=== PATIENT | male | born 1945 | race Caucasian/White ===

== ENCOUNTER 2016-10-05 10:33 | Inpatient (IN) | payer OTHER ==
[2016-08-30 13:21] VITALS: BMI 29.0
--- NOTE | 2016-08-30 13:48 | PAT Medication Instructions ---
Service Date Aug 30, 2016. Current Home Medication List Aspirin (Aspirin Ec), 81 MG PO QAM Atorvastatin (Lipitor), 40 MG PO QPM Multivitamin (Multivitamin), 1 TAB PO QAM Naproxen (Aleve), 440 MG PO QAM Medication Instructions For Your Scheduled Surgery - Check with surgeon for instructions: Naproxen (Aleve), 440 MG PO QAM - Hold the following medications the morning of surgery: Multivitamin (Multivitamin), 1 TAB PO QAM - Take the following medications the morning of surgery with a sip of water: Aspirin (Aspirin Ec), 81 MG PO QAM - Take the following medications as scheduled the night before surgery: Atorvastatin (Lipitor), 40 MG PO QPM If you have any questions please call us at [phone] (Susie Walker PA-C) or [phone] or [phone]
[2016-08-30 14:16] LABS: BASO % 0.3 %; BASO ABS # 0.02 K/uL (0-0.2); COMPLETE YES; EOS % 1.4 %; IG% 0.2 %; LYMPH % 42.1 %; MEAN CELL VOLUME 89.2 fL (80-100); MEAN CORPUSCULAR HEMOGLOBIN 30.4 pg (25-34); MEAN CORPUSCULAR HGB CONC 34.1 g/dl (32-36); MEAN PLATELET VOLUME 11.1 fL (7.4-10.4); MONO % 8.9 %; NEUT % 47.1 %; PLATELET COUNT 158 K/uL (130-400); RED BLOOD COUNT 4.93 M/uL (4.7-6.1); WHITE BLOOD COUNT 6.42 K/uL (4.8-10.8)
[2016-08-30 14:25] LABS: PARTIAL THROMBOPLASTIN RATIO 0.9; PROTHROMBIN TIME (PATIENT) 10.6 SECONDS (9.0-12.0)
[2016-08-30 14:49] LABS: BUN/CREATININE RATIO 14.9 (10-20); CALCIUM 8.5 mg/dl (8.5-10.1); CREATININE 1.1 mg/dl (0.60-1.40); POTASSIUM 3.5 mmol/L (3.5-5.1)
--- NOTE | 2016-08-30 17:15 | DIAGNOSTIC IMAGING REPORT ---
CHEST 2 VIEWS ROUTINE HISTORY: Preop. COMPARISON: None. FINDINGS: The lungs are clear. Cardiac silhouette is normal in size. No pleural effusions. No pneumothorax. IMPRESSION: No acute process. Electronically signed by: Damon Lezama M.D. 08/30/2016 5:14 PM Dictated Date/Time: 08/30/2016 5:14 PM
--- NOTE | 2016-10-01 19:21 | HISTORY & PHYSICAL EXAMINATION ---
DATE OF ADMISSION: 10/05/2016 CHIEF COMPLAINT: Left knee pain. HISTORY OF PRESENT ILLNESS: This is a 71-year-old gentleman who presents for surgical treatment of his left knee. He has got a long history of left knee discomfort and pain. It has gotten significantly worse over the past several years. He has been seeing Dr. Correa and treated with steroid shots and viscosupplementation which provided minimal relief. Pain has become more disabling. He cannot walk any long distances. He has lost ability to do a lot of things he likes to do as a result. PAST MEDICAL HISTORY: 1. Elevated cholesterol. 2. Kidney stones. PAST SURGICAL HISTORY: Previous surgeries include knee surgery in 1974. ALLERGIES: None. CURRENT MEDICINES: 1. Lipitor once a day. 2. Aspirin 81 mg a day. 3. Aleve p.r.n. SOCIAL HISTORY: This is a 71-year-old male. He lives in [place]. He is . Has a domestic partner. 1-2 drinks per day. Two children. FAMILY HISTORY: Noncontributory. REVIEW OF SYSTEMS: Negative for diabetes, neurologic problems, vascular problems, bleeding disorders. Denies any chest pain or shortness of breath. No history of DVT or PE. PHYSICAL EXAMINATION: GENERAL: Physical examination reveals a healthy, pleasant middle-aged male. He looks to be in good health. He looks younger than his stated age. HEENT: Benign. NECK: Supple. No lymphadenopathy. LUNGS: Clear to auscultation. HEART: Regular rate and rhythm. ABDOMEN: Soft, nontender, nondistended. EXTREMITIES: Grossly neurovascularly intact except as follows: Examination of left knee reveals patient ambulates independently. He has got varus alignment to his knee. Slight flexion contracture of 5-10 degrees. He can flex to 110. No instability. No pain with hip motion. X-RAYS: X-rays of the left knee were reviewed. It shows advanced left knee DJD. He has got complete loss of his medial joint space. He has got subchondral sclerosis. He has got osteophytes off the medial femoral condyle and medial tibial plateau. ASSESSMENT: A 71-year-old male with advanced left knee degenerative joint disease. He has failed conservative care and would like to have his left knee replaced. PLAN: We will take him to the operating room and do a left total knee replacement. The risks and benefits of this procedure were explained to the patient including but not limited to DVT, PE, , infection, neurological injury, vascular injury, bleeding problems, pain, limited range of motion, stiffness, failure to relieve symptoms, incomplete relief of symptoms, need for further surgery in the future, fracture, leg length inequality, nerve palsy, persistent pain, etc. The patient understands and desires to proceed. Informed consent was obtained. The patient had preoperative workup. EKG showed sinus rhythm with a first degree AV block. Chest x-ray normal. Labs were all normal. As far as discharge plans, he is planning to be discharged to home using [facility] home health program.
[~2016-10-05] VITALS: Ht 180.3 cm; Wt 88.5 kg
[2016-10-05] VITALS (7 sets, daily range): BP systolic 120–153; BP diastolic 68–98; PULSE 63–80; TEMP 36.5–37.3; O2SAT 92–98; Ht 180.3 cm; Wt 88.5 kg
[~2016-10-05 10:33] MED LIST: ACETAMINOPHEN 500 MG TAB PO SCH; ASPI81TA28 PO; ATOR-24 PO; ATROPINE SULFATE 0.1 MG/ML 5ML SYR IV PRN; BUPIVACAINE 0.25% 30 ML VIAL ONE; BUPIVACAINE 0.5 % 5 MG/1 ML PF 10ML VIAL ONE; BUPIVACAINE LIPOSOME 266 MG, BUPIVACAINE/EPINEPHRINE INJ 50 ML, SODIUM CHLORIDE 0.9% PF... INFIL SCH; CEFAZOLIN 2000 MG/60 ML D5W 60 ML IV SCH; EpHEDrine SULFATE INJ 50 MG/ML AMP IV PRN; FAMOTIDINE 20 MG TAB PO SCH; FENTANYL CITRATE INJ 50 MCG/1 ML 2 ML VIAL IV PRN; GABAPENTIN 300 MG CAP PO SCH; LACTATED RINGER'S 1000ML 1,000 ML IV SCH; LACTATED RINGER'S 1000ML IV SCH; METOCLOPRAMIDE HCL 10 MG TAB PO SCH; MULT-506 PO; NAPR1TAB9 PO; ONDANSETRON INJ 2 MG/ML 2 ML VIAL IV PRN; SCOPOLAMINE 1.5 MG TDSY TD SCH; TRANEXAMIC ACID INJ 1,000 MG in SODIUM CHLORIDE 0.9% 100ML 100 ML IV SCH
--- NOTE | 2016-10-05 11:06 | History & Physical Bridge Note ---
H&P Re-Evaluation Bridge Note: I have examined the patient, reviewed the History & Physical and in the interval since the performance of the History & Physical I have noted the following changes of clinical significance: No changes noted
[2016-10-05] MEDS ORDERED: MIDAZOLAM HCL 1 MG/ML 2ML VIAL ONE (12:13)
[2016-10-05] MEDS ORDERED: SODIUM CHLORIDE 0.9% PF 50 ML VIAL ONE (13:12)
[2016-10-05] MEDS ORDERED: BACITRACIN 50000 UNIT VIAL ONE (13:12)
[2016-10-05] MEDS ORDERED: BUPIVACAINE/EPINEPHRINE 0.25% 1:200,000 30 ML VIAL ONE (13:12)
[2016-10-05] MEDS ORDERED: BUPIVACAINE LIPOSOME 1/3% 266 MG/20 ML VIAL INFIL ONE (13:12)
[2016-10-05] MEDS ORDERED: LIDOCAINE HCL 2% 2 ML VIAL (20MG/ML) ONE (13:46)
[2016-10-05] MEDS ORDERED: PROPOFOL IV EMULSION 10 MG/ML 20 ML VIAL IV ONE (13:46)
[2016-10-05] MEDS ORDERED: PHENYLEPHRINE 100MCG/ML 5ML SYR ONE (14:46)
[2016-10-05] MEDS ORDERED: ONDANSETRON INJ 2 MG/ML 2 ML VIAL ONE (15:11)
--- NOTE | 2016-10-05 15:13 | [facility] Post Operative Brief Note ---
Immediate Operative Summary Operative Date Oct 05, 2016. Pre-Operative Diagnosis Left Knee Advanced Degenerative Joint Disease Post-Operative Diagnosis Left Knee Advanced Degenerative Joint Disease Procedure(s) Performed Left Total Knee Arthroplasty Surgeon Dr. Nix Pig Caster Surgeon(s) JAKY Joseph Estimated Blood Loss 50 cc Findings Left Knee DJD Fluids (cc crystalloids) 1300 cc Specimens A. Left Knee Bone and Tissue Drains None Anesthesia Spinal Complication(s) None Disposition Recovery Room / PACU
[2016-10-05] MEDS ORDERED: ONDANSETRON INJ 2 MG/ML 2 ML VIAL IV PRN (15:15)
[2016-10-05] MEDS ORDERED: BISACODYL 10 MG SUPP PR PRN (15:15)
[2016-10-05] MEDS ORDERED: SILVER SULFADIAZINE 1% CR 50 GM JAR EXT PRN (15:15)
[2016-10-05] MEDS ORDERED: ZOLPIDEM TARTRATE 5 MG TAB PO PRN (15:15)
[2016-10-05] MEDS ORDERED: OXYCODONE HCL IR 5 MG TAB (IMMEDIATE RELEASE) PO PRN (15:15)
[2016-10-05] MEDS ORDERED: TAMSULOSIN HCL 0.4 MG CAP PO PRN (15:15)
[2016-10-05] MEDS ORDERED: ALUMINUM/MAGNESIUM/SIMETH (MAALOX MAX) 30 ML UDC PO PRN (15:15)
[2016-10-05] MEDS ORDERED: MAGNESIUM HYDROXIDE SUSP 30 ML UDC PO PRN (15:15)
[2016-10-05] MEDS ORDERED: METOCLOPRAMIDE HCL INJ 5 MG/ML 2 ML VIAL IV PRN (15:15)
--- NOTE | 2016-10-05 15:41 | DIAGNOSTIC IMAGING REPORT ---
LEFT KNEE 1 OR 2 VIEWS ROUTINE CLINICAL HISTORY: AP/LATERAL IN PACU LEFT KNEE COMPARISON: None. DISCUSSION: Findings consistent with a prior total knee replacement. Good contact between prosthetic and underlying bone. Expected soft tissue postoperative change. IMPRESSION: Anatomic alignment status post total left knee replacement Electronically signed by: Geronimo Ureña M.D. 10/05/2016 3:39 PM Dictated Date/Time: 10/05/2016 3:38 PM
[2016-10-05] MEDS: CHECK SCOPOLAMINE PATCH PLACEMENT SCH ×2 (16:00→23:56)
--- NOTE | 2016-10-05 16:42 | Anesthesiology Progress Note ---
Anesthesia Post Op Note Date & Time Oct 05, 2016 at 16:41 Vital Signs Pain Intensity: 0 Vital Signs Past 12 Hours Date Time Temp Pulse Resp B/P Pulse Ox O2 Delivery O2 Flow Rate FiO2 10/05/16 16:15 36.2 68 15 112/63 98 Nasal Cannula 2 10/05/16 16:00 65 14 103/53 98 Nasal Cannula 2 10/05/16 15:50 70 15 114/58 97 Nasal Cannula 2 10/05/16 15:40 69 15 103/60 96 Nasal Cannula 2 10/05/16 15:30 66 14 103/62 97 Nasal Cannula 2 10/05/16 15:20 36.2 70 19 82/47 96 Nasal Cannula 2 10/05/16 11:06 36.6 73 20 145/98 96 Room Air Notes Mental Status: alert / awake / arousable, participated in evaluation Pt Amnestic to Procedure: Yes Nausea / Vomiting: adequately controlled Pain: adequately controlled Airway Patency, RR, SpO2: stable & adequate BP & HR: stable & adequate Hydration State: stable & adequate Anesthetic Complications: no major complications apparent
[2016-10-05] MEDS: SODIUM CHLORIDE 0.9% 1000ML 1,000 ML IV SCH ×2 (17:35→23:03)
[2016-10-05] MEDS: FERROUS GLUCONATE 324 MG TAB PO SCH (18:01)
[2016-10-05] MEDS: KETOROLAC TROMETHAMINE 15 MG/ML VIAL IV. SCH ×2 (18:02→23:56)
--- NOTE | 2016-10-05 20:50 | OPERATIVE REPORT ---
DATE OF OPERATION: 10/05/2016 SURGEON: Jay Nix MD EMAIL CAMPAIGN MANAGER: JAKY Andrews PREOPERATIVE DIAGNOSIS: Left knee degenerative joint disease. POSTOPERATIVE DIAGNOSIS: Same. PROCEDURE PERFORMED: Left cemented posterior stabilized total knee arthroplasty. COMPLICATIONS: None. ESTIMATED BLOOD LOSS: 50 mL. FLUID REPLACEMENT: 1300 mL crystalloid fluid replacement. ANESTHESIA: Spinal with adductor canal block. DRAINS: None. SPECIMENS: Left knee sent for pathology. TOURNIQUET TIME: 64 minutes at 300 mmHg. OPERATIVE INDICATIONS: The patient is a 71-year-old very active gentleman who has a long history of bilateral knee pain and discomfort. He has been through extensive conservative treatment including oral medicines, steroid shots and viscosupplementation without adequate relief. X-rays revealed advanced left knee DJD. He has a significant varus deformity to his knee. The patient elected to proceed with operative treatment. OPERATIVE FINDINGS: Operative findings revealed advanced left knee DJD. He had extensive grade 4 changes of the entire medial femoral condyle and medial tibial plateau. He had a fixed varus deformity to his knee. He had a flexion contracture. He had a moderate sized joint effusion. He had osteophytes in all 3 compartments, mostly in the medial side with large posterior medial osteophytes. OPERATIVE IMPLANTS: Operative implants consisted of: 1. Biomet Vanguard size 75 left posterior stabilized femoral component. 2. Biomet size 79 tibial tray. 3. A 12 mm posterior stabilized polyethylene insert. 4. A 34 x 8.5 all poly patella. OPERATIVE PROCEDURE: The patient was taken to the operating room, identified and placed on the operating table in supine position. All contact areas were appropriately padded. IV antibiotics were provided by anesthesia team. A spinal anesthetic and adductor canal block had been provided in the holding area. Gaitan catheter was placed in sterile fashion. A left thigh tourniquet was then placed and the left lower extremity was then prepped and draped in the usual sterile fashion. The left leg was elevated and exsanguinated with Esmarch and tourniquet was placed at 350 mmHg. An anterior approach to the left knee was then performed through a longitudinal incision centered over the patella. Sharp dissection was carried out through the subcutaneous tissue down to the level of the extensor mechanism. A medial parapatellar arthrotomy incision was made. Extensive dissection was carried out medially and posteromedially to release the medial side and to release his flexion contracture. The fat pad was resected from beneath the patellar tendon. The lateral patellofemoral ligament was released. The patella was everted and the knee was flexed. The osteophytes were taken off the distal femur. The ACL and PCL were then released from the distal femur and the tibia was subluxated anteriorly. The external tibial alignment jig was then placed in the anterior face of the tibia and adjusted 16 mm medially. The proximal tibial cut was made essentially just slightly below the most deficient aspect of the medial and posteromedial tibial plateau. This did take a very large piece off laterally. Some osteophytes were taken off medial and posteromedially. Tibia was sized to a size 79. Attention was then drawn to the femur. The distal femur was entered with a sharp drill bit. Intramedullary canal was suctioned. A left 6-degree valgus cutting guide was placed. Distal femoral cutting block was pinned in place. Distal femoral cut was made to take an additional 3 mm of bone off the distal femur. The femur was then sized to a size 75. We downsized this just slightly. The AP cutting block was pinned parallel to the epicondylar axis, which was 6 degrees of external rotation. The anterior cut, anterior chamfer, posterior cut, posterior chamfer cuts were made. Box cutting guide was placed and adjusted slight lateral and the box cut was made. The knee was flexed. The remnants of the medial and lateral menisci were excised. The osteophytes were taken off the posterior aspect of the femur. A trial femoral component was placed. Tibial tray was pinned in maximum external rotation and the drill and stem punch were used to create defect in proximal tibia for the tibial tray. The knee was then trialed and the 12 mm insert fit most appropriately. Attention was drawn to the patella. The patella was cleaned of all soft tissues. Patella thickness measured 25 mm in thickness and was cut down to 15. It was sized to a size 34 patella. The lug holes were drilled for the 34 patella. Lateral osteophyte was removed. Patella button was placed. Knee was taken through range of motion and the patella tracked nicely with no thumbs test. Attention was then drawn toward placement of permanent components. All trial components were removed. A bone plug was placed in the distal femur to limit blood loss. A double batch of Palacos G cement was mixed. A left size 75 posterior stabilized femoral component, size 79 tibial tray, a 12 mm posterior stabilized polyethylene insert, and a 34 x 8.5 all poly patella were then cemented in place. The knee was brought out into full extension until cement hardened. A final cement check was then performed. The pericapsular tissues were injected with a total of 100 mL of a combination of 20 mL of Exparel, 30 mL of normal saline, 50 mL of 0.25% Marcaine with epinephrine. The patient did receive 1 gram of tranexamic acid. The tourniquet was let down for final tourniquet time of 64 minutes. Hemostasis was assured with use of electrocautery. The extensor mechanism was then closed with a combination of #1 PDS suture and #1 Vicryl suture in a [id number] fashion. Extensor mechanism was checked and found to be intact. Subcutaneous tissues were then closed with 2-0 Dexon suture in a buried interrupted fashion. Skin was closed with skin jarocho. The leg was then cleaned and dried and a sterile dressing with Xeroform, 4 x 4, sterile cast padding and Phu bandage were applied. The patient then transferred to the recovery room in stable condition. The patient tolerated the procedure well with no complications. All needle and sponge counts were correct at the end of the operation. I attest to the content of the Intraoperative Record and any orders documented therein. Any exceptio ns are noted below.
[2016-10-05] MEDS ORDERED: TRANEXAMIC ACID INJ 1,000 MG in SODIUM CHLORIDE 0.9% 100ML 100 ML IV SCH (21:00)
[2016-10-05] MEDS: TAPENTADOL ER 50 MG TABCR PO SCH (21:05)
[2016-10-05] MEDS: ASPIRIN 325 MG ECTAB PO SCH (21:05)
[2016-10-05] MEDS: ATORVASTATIN 40 MG TAB PO SCH (21:05)
[2016-10-05] MEDS: DOCUSATE SODIUM 100 MG CAP PO SCH (21:06)
[2016-10-05] MEDS: ACETAMINOPHEN 500 MG TAB PO SCH (21:50)
[2016-10-05] MEDS: CEFAZOLIN IV 2,000 MG in DEXTROSE 5% 50ML 50 ML IV SCH (21:51)
[2016-10-06 03:54] VITALS: BP 132/75; PULSE 67; TEMP 36.8; O2SAT 96
[2016-10-06 06:24] LABS: HEMATOCRIT 41.6 % (42-52); MEAN CELL VOLUME 92.4 fL (80-100); MEAN CORPUSCULAR HEMOGLOBIN 30.4 pg (25-34); MEAN CORPUSCULAR HGB CONC 32.9 g/dl (32-36); PLATELET COUNT 131 K/uL (130-400); WHITE BLOOD COUNT 10.24 K/uL (4.8-10.8)
[2016-10-06] MEDS: CEFAZOLIN IV 2,000 MG in DEXTROSE 5% 50ML 50 ML IV SCH (06:27)
[2016-10-06] MEDS: KETOROLAC TROMETHAMINE 15 MG/ML VIAL IV. SCH ×3 (06:27→18:08)
[2016-10-06] MEDS: ACETAMINOPHEN 500 MG TAB PO SCH ×3 (06:28→21:15)
[2016-10-06] MEDS: SODIUM CHLORIDE 0.9% 1000ML 1,000 ML IV SCH (06:28)
[2016-10-06 07:16] VITALS: BP 121/74; PULSE 60; TEMP 36.5; O2SAT 94
[2016-10-06 07:16] LABS: BUN/CREATININE RATIO 18.1 (10-20); CALCIUM 8.2 mg/dl (8.5-10.1); CREATININE 0.93 mg/dl (0.60-1.40); POTASSIUM 3.9 mmol/L (3.5-5.1)
[2016-10-06] MEDS: DOCUSATE SODIUM 100 MG CAP PO SCH ×2 (08:40→21:14)
[2016-10-06] MEDS: ASPIRIN 325 MG ECTAB PO SCH ×2 (08:40→21:14)
[2016-10-06] MEDS: FERROUS GLUCONATE 324 MG TAB PO SCH ×3 (08:40→18:07)
[2016-10-06] MEDS: MULTIVITAMIN TAB PO SCH (08:40)
[2016-10-06] MEDS: CHECK SCOPOLAMINE PATCH PLACEMENT SCH ×2 (08:41→15:24)
[2016-10-06] MEDS: PANTOprazole SOD 40 MG TAB PO SCH (08:41)
[2016-10-06] MEDS: TAPENTADOL ER 50 MG TABCR PO SCH ×2 (08:41→21:14)
[2016-10-06] MEDS ORDERED: MORP15TA19 PO (08:59)
[2016-10-06] MEDS ORDERED: OXYC-57 PO (08:59)
[2016-10-06] MEDS ORDERED: ASPEC325 PO (08:59)
[2016-10-06] MEDS ORDERED: MULTIVITAMIN TAB PO SCH (09:00)
--- NOTE | 2016-10-06 09:01 | Discharge Instructions ---
Discharge Instructions Date of Service Oct 06, 2016. Admission Reason for Admission: Left Knee Degenerative Joint Disease Discharge Discharge Diagnosis / Problem: Right Knee Replacement Discharge Goals Goal(s): Decrease discomfort, Improve function, Increase independence, Improve disease control Activity Recommendations Activity Limitations: per Instructions/Follow-up section Weightbearing Status: Right weightbearing . Instructions / Follow-Up Instructions / Follow-Up ACTIVITY RECOMMENDATIONS: Physical Therapy: * You will go to physical therapy three times each week for four to six weeks after your surgery in order to regain your knee range of motion and to retrain your knee to work properly. * It is just as important to make sure you are getting your knee perfectly straight as it is to regain your knee bend. * Taking a pain pill an hour before therapy can help you have a more productive and comfortable therapy session. Home Exercise: * You were shown a series of exercises (heel props, heel slides, etc.) in the hospital. Do these exercises three to four times each day including the exercises you were shown in physical therapy. Walking: * Get up and walk several times each day. For the first four weeks, try not to stand or walk for more than one hour at a time. If you do stand or walk for more than one hour, you will not hurt anything, but your knee and leg will likely swell. * As you feel comfortable, you may change from the walker or crutches to a cane and then to independent walking. MEDICATIONS: New Medicine: * You will likely be taking one or more of these medications: 1. MS Contin - A long-acting pain medication. Take 1 tablet twice a day for the first ten days to decrease your baseline level of pain. 2. Percocet - A quick and shorter-acting pain medication. Take one to two tablets every four to six hours to lessen your pain. 3. Aspirin - Thins your blood to lessen the chance of forming a blood clot. * The most common side effects of pain medicine and iron are nausea and constipation. If nausea or constipation is too much of a problem or if you have any questions about your new medicines or doses, call [facility] at . We will try to help you manage these issues. VERY IMPORTANT TO READ AND REVIEW" Pain: * The immediate post-operative period after knee replacement surgery is often quite painful. * You are given a prescription for pain medicine. You should take it, as directed, when you need it, especially before physical therapy and before going to bed. Pain that interferes with sleep is very common and can last several months. * You will likely need pain medicine for the first four to six weeks. It will not stop all of the pain. The pain will lessen and as you feel better, you may change to milder pain medicine such as Tylenol. * The most common side effects of pain medicine are nausea and constipation, so don't take more than you need. SPECIAL CARE INSTRUCTIONS: TEDs/Elastic Stockings: * The white elastic stockings help limit swelling and prevent blood clots from forming in your legs. The more you wear them, the more they work. * Wear them for six weeks after knee replacement surgery and four weeks after partial knee replacement. Prevention of Infection: * Take antibiotics one hour before any dental cleaning, dental work, urological procedure, gastrointestinal procedure or any invasive surgery in order to prevent your new joint from getting infected. * You may get the antibiotics from the doctor performing the procedure or you may call our office at before and we will call in a prescription to the pharmacy of your choice. Things to Watch For: * Drainage from the incision site that occurs more than one week after your surgery. * Severely increased knee/leg pain or swelling. * Increased redness at the incision site. * Fever above 102 degrees Fahrenheit. * Unusual chest pain or shortness of breath. * Unusual pain or burning with urination. Call [facility] at with any of the above problems or if you have any questions about your medicines or recovery. FOLLOW UP VISIT: Make an appointment to see your doctor for approximately two weeks after surgery for a progress check and staple removal by calling the office at . Current Hospital Diet Patient's current hospital diet: Regular Diet Discharge Diet Recommended Diet: Regular Diet Procedures Procedures Performed: Left Total Knee Arthroplasty Pending Studies Studies pending at discharge: no Medical Emergencies . Who to Call and When: Medical Emergencies: If at any time you feel your situation is an emergency, please call [phone] immediately. . Non-Emergent Contact Non-Emergency issues call your: Surgeon . "Provider Documentation" section prepared by Jay Nix. . VTE Core Measure Inpt VTE Proph given/why not?: Other Anticoagulation, T.E.D. Stockings, SCD's
--- NOTE | 2016-10-06 10:58 | Anesthesiology Progress Note ---
Anesthesia Post Op Note Date & Time Oct 06, 2016 at 10:56 Vital Signs Pain Intensity: 0.0 Vital Signs Past 12 Hours Date Time Temp Pulse Resp B/P Pulse Ox O2 Delivery O2 Flow Rate FiO2 10/06/16 07:30 Room Air 10/06/16 07:16 36.5 60 17 121/74 94 Room Air 10/06/16 03:54 36.8 67 16 132/75 96 Room Air 10/06/16 00:02 Room Air 10/05/16 23:12 36.8 63 18 136/71 92 Room Air Notes Mental Status: alert / awake / arousable, participated in evaluation Pt Amnestic to Procedure: Yes Nausea / Vomiting: adequately controlled Pain: adequately controlled Airway Patency, RR, SpO2: stable & adequate BP & HR: stable & adequate Hydration State: stable & adequate Neuraxial Anesthesia: was administered, sensory block resolved Anesthetic Complications: no major complications apparent
[2016-10-06 11:16] VITALS: BP 111/70; PULSE 76; TEMP 36.6; O2SAT 95
--- NOTE | 2016-10-06 12:46 | PROGRESS NOTE ---
DATE: 10/06/2016 DATE: 10/06/2016. SUBJECTIVE: A 71-year-old gentleman postop day 1 from a left knee replacement. He is doing pretty well. Pain is controlled. Therapy went well today. Denies any chest pain or shortness of breath. Not feeling dizzy or lightheaded. OBJECTIVE: VITAL SIGNS: Temperature is 36.6. Vital signs stable. PHYSICAL EXAMINATION: GENERAL: Reveals a healthy, pleasant, middle-aged male. He is sitting up in his bed reading a book. He looks comfortable. LUNGS: Clear to auscultation. HEART: Regular rate and rhythm. ABDOMEN: Soft, nontender, nondistended. EXTREMITY EXAMINATION: Grossly neurovascularly intact except as follows: Examination of left leg reveals the leg to be well aligned. Dressing is clean, dry, and intact. He can dorsiflex and plantarflex his foot appropriately. He is neurologically intact. LABORATORY DATA: Hemoglobin is 13.7, hematocrit is 41.6. Electrolytes are stable. ASSESSMENT: A 71-year-old male postop day 1 from a left knee replacement, doing well. Pain is controlled. He is neurologically intact. PLAN: 1. DVT prophylaxis including thigh-high TEDs, SCDs, and aspirin twice a day. 2. PT/OT. Weightbearing as tolerated. Left total knee protocol. 3. Pain control. Doing pretty well with current medication regimen. 4. Disposition. Plan to discharge to home and do home health versus outpatient therapy once medically stable.
[2016-10-06 15:22] VITALS: BP 123/71; PULSE 68; TEMP 36.9; O2SAT 96
[2016-10-06] MEDS: ATORVASTATIN 40 MG TAB PO SCH (21:14)
[2016-10-06 23:25] VITALS: BP 135/74; PULSE 76; TEMP 36.7; O2SAT 95
[2016-10-07] MEDS: CHECK SCOPOLAMINE PATCH PLACEMENT SCH (00:25)
[2016-10-07] MEDS: KETOROLAC TROMETHAMINE 15 MG/ML VIAL IV. SCH ×2 (00:25→05:35)
[2016-10-07] MEDS: ACETAMINOPHEN 500 MG TAB PO SCH (05:35)
[2016-10-07 06:37] VITALS: BP 144/74; PULSE 76; TEMP 36.6; O2SAT 97
[2016-10-07] MEDS: ASPIRIN 325 MG ECTAB PO SCH (07:38)
[2016-10-07] MEDS: PANTOprazole SOD 40 MG TAB PO SCH (07:38)
[2016-10-07] MEDS: FERROUS GLUCONATE 324 MG TAB PO SCH (07:38)
[2016-10-07] MEDS: TAPENTADOL ER 50 MG TABCR PO SCH (07:38)
[2016-10-07] MEDS: MULTIVITAMIN TAB PO SCH (07:38)
[2016-10-07] MEDS: DOCUSATE SODIUM 100 MG CAP PO SCH (07:38)
--- NOTE | 2016-10-07 07:42 | PROGRESS NOTE ---
DATE: 10/07/2016 SUBJECTIVE: 71-year-old gentleman postop day 2 from a left knee replacement. He is doing well. Rates his pain at about a 0. No chest pain or shortness of breath. Not feeling dizzy or lightheaded. OBJECTIVE: VITAL SIGNS: Temperature 36.6. Vital signs stable. PHYSICAL EXAMINATION: GENERAL: Reveals a healthy, pleasant, middle-aged male. He is sitting up in his bedside chair reading this morning. LUNGS: Clear to auscultation. HEART: Regular rate and rhythm. ABDOMEN: Soft, nontender, nondistended. EXTREMITIES: Grossly neurovascularly intact except as follows: Examination of the left leg reveals the dressing to be clean, dry, and intact. He can dorsiflex and plantarflex his foot appropriately. He is neurologically intact. ASSESSMENT: 71-year-old gentleman postop day 2 from a left knee replacement, doing well. Pain is controlled. He is neurologically intact. PLAN: 1. DVT prophylaxis including thigh-high TEDs, SCDs, and aspirin twice a day. 2. PT/OT. Weightbearing as tolerated. Left total knee protocol. 3. Pain control, doing pretty well with current pain regimen. 4. Disposition: Plan to discharge to home with some home health after therapy today.
[2016-10-07 09:19] VITALS: BP 144/74; PULSE 76; TEMP 36.6; O2SAT 97
--- NOTE | 2016-10-12 16:31 | DISCHARGE SUMMARY ---
ADMITTING PHYSICIAN AND SURGEON: Jay Nix MD ADMITTING DIAGNOSIS: Left knee degenerative joint disease. SURGERY PERFORMED: Left total knee arthroplasty. SECONDARY DIAGNOSES: Includes elevated cholesterol and kidney stones. CONSULTS: None obtained. HOSPITAL COURSE: The patient was admitted on 10/05/2016, underwent total knee arthroplasty, tolerated the procedure well. There were no complications. He was transferred to the PACU postoperatively and later to the orthopedic floor for further care. He was given Ancef for antibiotic prophylaxis, MARIUSZ stockings, SCDs and aspirin for DVT prophylaxis. His hemoglobin, hematocrit and vital signs were monitored during his hospital stay and remained stable. He did not require any blood transfusions. There were no complications. By postoperative day 2; he was tolerating a general diet, pain was controlled with oral pain medicine, he was participating in physical therapy and had no signs or symptoms of deep vein thrombosis. On postoperative day 2; he was discharged home in good condition, set up home health services, given printed discharge instructions including prescriptions for aspirin 325 mg b.i.d., MS Contin and Percocet. Continue his home medications with the exception of his home dose of aspirin. Continue physical therapy, weightbearing as tolerated and MARIUSZ stockings. He will follow up with Dr. Nix in 10-12 days or sooner if there are problems or concerns.
== END 2016-10-07 11:15 | disposition home health service (06) | DRG 470 ==
LOC: ENRESERVDT → ENRESERVTM → C.ACU 10:33 → C.3E 11:00
PROVIDERS: ADMIT Orthopaedic Surgery Sports Medicine; ATTEND Orthopaedic Surgery Sports Medicine
PROC: 0SRD0J9 Replacement of Left Knee Joint with Synthetic Substitute, Cemented, Open Approach (ICD-10-PCS; principal; 2016-10-05 12:55)
DX: M17.12 Unilateral primary osteoarthritis, left knee (principal); E78.00 Pure hypercholesterolemia, unspecified; Z87.442 Personal history of urinary calculi; M21.162 Varus deformity, not elsewhere classified, left knee; Z79.82 Long term (current) use of aspirin; Z79.1 Long term (current) use of non-steroidal anti-inflammatories (NSAID); Z79.899 Other long term (current) drug therapy